=== PATIENT | male | born 1975 | race Caucasian/White ===

== ENCOUNTER → 2019-04-02 | Outpatient (CLI) | payer OTHER ==
[~2019-04-02] MED LIST: KETOROLAC10 MG PO; MOTRIN800 MG PO; Orphenadrine C100 MG PO
[2019-04-02 11:01] LABS: HEMATOCRIT 44.2 % (42.0-52.0); HEMOGLOBIN 14.4 g/dl (14.0-18.0); MEAN CELL VOLUME 91.7 fl (80.0-94.0); MEAN CORPUSCULAR HGB 29.9 pg (27.0-31.0); MEAN CORPUSCULAR HGB CONC 32.6 g/dl (33.0-37.0); MEAN PLATELET VOLUME 10.9 fl (9.6-12.3); RED BLOOD COUNT 4.82 10*6/uL (4.50-5.90); WHITE BLOOD COUNT 6.5 10*3/uL (4.8-10.8)
[2019-04-02 11:09] LABS: ALBUMIN 4.1 gm/dl (3.1-4.5); ALKALINE PHOSPHATASE 67 U/L (45-117); BUN 14 mg/dl (7-24); CHLORIDE 108 mmol/L (98-107); CHOLESTEROL 156 mg/dL (<200); HDL CHOLESTEROL 45 mg/dl (40-60); LDL CHOLESTEROL 89 mg/dL (9-159); POTASSIUM 4.1 mmol/L (3.5-5.1); SGOT/AST 236 IU/L (3-35); SGPT/ALT 122 U/L (12-78); SODIUM 142 mmol/L (136-145); TOTAL PROTEIN 7.8 gm/dL (6.4-8.2); TRIGLYCERIDES 112 mg/dl (<150); VLDL CHOLESTEROL 22 mg/dL (6-40)
[2019-04-03 06:08] LABS: HEPATITIS B SURFACE AG Negative (Negative); HEPATITIS C VIRUS ANTIBODY <0.1 s/co (0.0-0.9)
[2019-04-03 09:09] LABS: H PYLORI IGG AB 162289 0.22 (0.00-0.79); PROSTATE SPECIFIC AG FREE 0.53 ng/mL; PROSTATE SPECIFIC AG, SERUM 0.9 ng/mL (0.0-4.0)
== END | disposition home or self-care (01) ==
LOC: LAB 10:15
PROVIDERS: Family Medicine
DX: K21.9 Gastro-esophageal reflux disease without esophagitis (principal); R53.83 Other fatigue; R30.0 Dysuria; R35.8 Other polyuria; Z80.42 Family history of malignant neoplasm of prostate

== ENCOUNTER → 2019-04-05 | Outpatient (CLI) | payer OTHER ==
[2019-04-06 08:07] LABS: ALPHA-1-ANTITRYPSIN, SERUM 159 mg/dL (101-187)
[2019-04-06 16:10] LABS: ANTI-SMOOTH MUSCLE ANTIBODY 5 Units (0-19)
== END | disposition home or self-care (01) ==
LOC: LAB 10:44
PROVIDERS: Family Medicine
DX: R94.5 Abnormal results of liver function studies (principal)

== ENCOUNTER 2022-03-09 15:31 | Emergency (ER) | payer BC ==
[~2022-03-09] VITALS: Ht 175.2 cm; Wt 74.8 kg
== END 2022-03-09 16:51 | disposition home or self-care (01) ==
LOC: ED 15:31
DX: Z00.00 Encounter for general adult medical examination without abnormal findings (principal); Z98.890 Other specified postprocedural states; F10.90 Alcohol use, unspecified, uncomplicated

== ENCOUNTER 2022-03-10 05:04 | Emergency (ER) | payer BC ==
[~2022-03-10] VITALS: Ht 170.1 cm; Wt 72.6 kg
== END 2022-03-10 05:20 | disposition left against medical advice (07) ==
LOC: ED 05:04
DX: R03.0 Elevated blood-pressure reading, without diagnosis of hypertension (principal)

== ENCOUNTER 2023-12-31 20:06 | Emergency (ER) | payer MEDICAID ==
[~2023-12-31] VITALS: Ht 175.2 cm; Wt 76.2 kg
[2023-12-31 21:02] LABS: BASO # 0.1 10*3/uL (0.0-0.1); BASO % 0.6 % (0.0-1.0); EOS # 0.1 10*3/uL (0.0-0.4); EOS % 1.6 % (1.0-4.0); HEMATOCRIT 38.2 % (42.0-52.0); MEAN CELL VOLUME 91.4 fl (80.0-94.0); MEAN CORPUSCULAR HGB 29.9 pg (27.0-31.0); MEAN CORPUSCULAR HGB CONC 32.7 g/dl (33.0-37.0); MEAN PLATELET VOLUME 10.5 fl (9.6-12.3); MONO # 0.6 10*3/uL (0.1-1.0); MONO % 7.1 % (3.0-9.0); NEUT % 67.8 % (47.0-73.0); PLATELET COUNT AUTOMATED 262 10*3/uL (130-400); RED BLOOD COUNT 4.18 10*6/uL (4.50-5.90); RED CELL DISTRI WIDTH 14.1 % (0-14.5); WHITE BLOOD COUNT 8.9 10*3/uL (4.8-10.8)
[2023-12-31 21:18] LABS: BUN 27 mg/dl (9-23); CHLORIDE 106 mmol/L (98-107); POTASSIUM 4.3 mmol/L (3.4-5.1)
[2023-12-31] MEDS ORDERED: LORazepam 1 MG TAB PO ONE (22:00)
[2023-12-31] MEDS ORDERED: ATARAX,VISTARIL50 MG PO (23:03)
== END 2023-12-31 23:08 | disposition home or self-care (01) ==
LOC: ED 20:06
PROVIDERS: Nurse Practitioner Family
DX: R07.89 Other chest pain (principal); F41.9 Anxiety disorder, unspecified; R03.0 Elevated blood-pressure reading, without diagnosis of hypertension; Z98.890 Other specified postprocedural states